=== PATIENT | male | born 1960 | race Caucasian/White ===

== ENCOUNTER → 2024-09-08 20:15 | Outpatient (REF) | payer OTHER, SELFPAY | LOC: MRI 20:15 | PROVIDERS: ATTENDING PHYSICIAN Orthopaedic Surgery; FAMILY PHYSICIAN Family Medicine | DX: M75.22 Bicipital tendinitis, left shoulder (principal); M19.012 Primary osteoarthritis, left shoulder | CPT/HCPCS: 73221 ==